=== PATIENT | female | born 1950 | race Caucasian/White ===

== ENCOUNTER → 2017-07-12 | Outpatient (CLI) | payer OTHER ==
[~2017-07-12] MED LIST: AMLODIPINE BESYL5 MG PO; DICYCLOMINE HCL20 MG PO; LEVOTHYROXINE75 MCG PO; LEVOTHYROXINE88 MCG PO; LOSARTAN POTAS100 MG PO; METOPROLOL SUCC50 MG PO; OMEPRAZOLE40 MG PO
--- NOTE | 2017-07-12 13:58 | Diagnostic Imaging Report ---
PROCEDURE:ABDOMINAL ULTRASOUND COMPARISON:None. INDICATIONS:Abdomen Pain, Colon Polyps TECHNIQUE: Garduno-scale and color sonographic images were obtained of the abdomen in transverse and sagittal planes. FINDINGS: Liver: 13.3 in length in right midclavicular line. Increased echogenicity. No masses. Mildly nodular contour. Main portal vein: 0.7 cm with expected hepatopetal flow Gallbladder: A 3 mm echogenic focus adherent to the gallbladder wall may represent a small, adherent stone or polyp. Common Bile Duct: 0.3 cm, nondilated Sonographic Schulz's sign: Negative Right kidney: 10.0 cm in length. No stones, hydronephrosis, or solid mass. Left kidney: 10.3 cm in length. No stones, hydronephrosis, or solid mass. Spleen: 9.1 cm in length. Pancreas: The pancreatic duct is prominent, measuring up to about 4 mm. Inferior vena cava: Patent Aorta: The distal aorta is obscured overlying bowel gas. Ascites: None CONCLUSION: Prominent pancreatic duct. Recommend CT of the abdomen, pancreatic protocol (with and without contrast), and to exclude an obstructing mass. Mildly nodular liver contour, raising the possibility of cirrhosis. This could be further evaluated on CT of the abdomen. 3 mm echogenic focus adherent to the gallbladder wall. This could represent a small stone or polyp. Dictated by: Sergio Conner M.D. on 07/12/2017 at 13:57 Electronically approved by: Sergio Conner M.D. on 07/12/2017 at 13:57
== END ==
LOC: US 12:34
PROVIDERS: ATTEND Internal Medicine Gastroenterology
DX: R10.30 Lower abdominal pain, unspecified (principal); R14.0 Abdominal distension (gaseous); K30 Functional dyspepsia; I10 Essential (primary) hypertension; Z68.22 Body mass index [BMI] 22.0-22.9, adult; Z83.71 Family history of colonic polyps; F10.20 Alcohol dependence, uncomplicated; F17.200 Nicotine dependence, unspecified, uncomplicated
CPT/HCPCS: 76700

== ENCOUNTER → 2017-07-19 | Day surgery (SDC) | payer OTHER ==
[2017-07-15 15:47] LABS: BASOPHILS # (AUTO) 0.1 (0.0-0.1); BASOPHILS % 1.2 % (0.0-1.0); EOSINOPHILS # (AUTO) 0.1 (0.0-0.4); EOSINOPHILS % 1.7 % (0.0-6.0); HEMATOCRIT 42.9 % (34.2-44.1); HEMOGLOBIN 15.1 g/dL (12.0-16.0); LYMPHOCYTES # (AUTO) 1.9 (1.0-3.2); LYMPHOCYTES % 32.1 % (18.0-39.1); MEAN CORPUSCULAR HEMOGLOBIN 31.9 pg (28-32); MEAN CORPUSCULAR HGB CONC 35.2 g/dL (31-35); MEAN CORPUSCULAR VOLUME 90.5 fL (81-99); MONOCYTES # (AUTO) 0.7 (0.2-0.8); MONOCYTES % 11.4 % (4.4-11.3); NEUTROPHILS # (AUTO) 3.2 (2.1-6.9); NEUTROPHILS % 53.4 % (38.7-80.0); PLATELET COUNT 301 x10e3/uL (140-360); RED BLOOD COUNT 4.74 x10e6/uL (3.6-5.1); RED CELL DISTRIBUTION WIDTH 12.2 % (11.7-14.4)
[~2017-07-19] MED LIST changes: +FENTANYL CITRATE/PF 100MCG/2 ML INJ ONE; +LIDOCAINE HCL 2% LOCAL INJ 5 ML SDV VIAL INJ ONE; +MIDAZOLAM HCL 2 MG/2 ML VIAL ONE; +PROPOFOL IV EMULSION 10 MG/ML 20 ML VIAL ONE
--- OUTSIDE RECORDS SUMMARY | 2017-07-19 11:49 | XMS REPORT ---
Author Author [facility] Address Unknown Phone Unavailable Care Team Providers [employer] Courier Name Role Phone TY DANIELS Unavailable Unavailable MELBA SCHMIDT Unavailable Unavailable Problems This patient has no known problems. Allergies, Adverse Reactions, Alerts This patient has no known allergies or adverse reactions. Medications This patient has no known medications. Results Test Description Test Time Test Comments Text Results Atomic Results Result Comments US ABDOMEN COMPLETE [place] [address] Patient Name: JAMES MARK MR #: [id number] : 1950 Age/Sex: 67/F Req #: [id number] Adm Physician: Ordered by: TY DANIELS MD Report #: [id number] Location: US Room/Bed: Procedure: [id number] US/US ABDOMEN COMPLETE Exam Date: 07/12/17 Exam Time : 1307 REPORT STATUS: Signed PROCEDURE: ABDOMINAL ULTRASOUND COMPARISON: None. INDICATIONS: Abdomen Pain, Colon Polyps TECHNIQUE : Garduno-scale and color sonographic images were obtained of the abdomen in transverse and sagittal planes. FINDINGS: Liver: 13.3 in length in right midclavicular line. Increased echogenicity. No masses. Mildly nodular contour. Main portal vein: 0.7 cm with expected hepatopetal flow Gallbladder: A 3 mm echogenic focus adherent to the gallbladder wall may represent a small, adherent stone or polyp. Common Bile Duct: 0.3 cm, nondilated Sonographic Schulz's sign: Negative Right kidney: 10.0 cm in length. No stones, hydronephrosis, or solid mass. Left kidney: 10.3 cm in length. No stones, hydronephrosis, or solid mass. Spleen: 9.1 cm in length. Pancreas: The pancreatic duct is prominent, measuring up to about 4 mm. Inferior vena cava: Patent Aorta: The distal aorta is obscured overlying bowel gas. Ascites: None CONCLUSION: Prominent pancreatic duct. Recommend CT of the abdomen, pancreatic protocol (with and without contrast), and to exclude an obstructing mass. Mildly nodular liver contour, raising the possibility of cirrhosis. This could be further evaluated on CT of the abdomen. 3 mm echogenic focus adherent to the gallbladder wall. This could represent a small stone or polyp. Dictated by: Christel Conner M.D. on 07/12/2017 at 13:57 Electronically approved by: Christel Conner M.D. on 07/12/2017 at 13:57 Dictated By: CHRISTEL CONNER MD [id number] Transcribed By: SUMIT on 07/12/17 1357 COPY TO: TY DANIELS MD BANathalia DUARTE [place] [address] Patient Name: JAMES MARK MR #: [id number] : 1950 Age/Sex: 66/F Req #: [id number] Adm Physician: Ordered by: ROXANA DELGADILLO, MELBA DELGADILLO Report #: [id number] Location: DX Room/Bed: Procedure: [id number] DX/MODIFIED BA. SWALLOW Exam Date: Exam Time: REPORT STATUS: Signed PROCEDURE: X-RAY MODIFIED BARIUM SWALLOW COMPARISON: None. INDICATIONS: Not provided. DISCUSSION: Fluoroscopic examination was performed in conjunction with speech pathology, during swallowing of a variety of thin and thick liquid consistencies. CONCLUSION: No penetration or aspiration. Please see the report from speech pathology for complete details. Dictated by: Svetlana Andersen M.D. on 03/31/2017 at 14:12 Electronically approved by: Svetlana Andersen M.D. on 03/31/2017 at 14:12 Dictated By: SVETLANA ANDERSEN MD 141 Transcribed By: SUMIT on 03/31/171411 COPY TO: MELBA SCHMIDT
== END | disposition home or self-care (01) ==
LOC: OR 11:48
PROVIDERS: ATTEND Internal Medicine Gastroenterology
DX: K29.50 Unspecified chronic gastritis without bleeding (principal); K63.5 Polyp of colon; K22.70 Barrett's esophagus without dysplasia; K21.0 Gastro-esophageal reflux disease with esophagitis; K44.9 Diaphragmatic hernia without obstruction or gangrene; K57.30 Diverticulosis of large intestine without perforation or abscess without bleeding; K58.9 Irritable bowel syndrome, unspecified; I10 Essential (primary) hypertension; E03.9 Hypothyroidism, unspecified; F17.200 Nicotine dependence, unspecified, uncomplicated; Z01.810 Encounter for preprocedural cardiovascular examination; Z01.812 Encounter for preprocedural laboratory examination; Z86.11 Personal history of tuberculosis; Z86.19 Personal history of other infectious and parasitic diseases
CPT/HCPCS: 36415; 43239; 45385; 85025; 93005; J2001; J2250

== ENCOUNTER → 2017-08-06 | Outpatient (CLI) | payer OTHER ==
[~2017-08-06] MED LIST changes: -FENTANYL CITRATE/PF 100MCG/2 ML INJ ONE; +IOPAMIDOL 370 MG/ML 200 ML INFUS..BTL INJ ONE; -LIDOCAINE HCL 2% LOCAL INJ 5 ML SDV VIAL INJ ONE; -MIDAZOLAM HCL 2 MG/2 ML VIAL ONE; -PROPOFOL IV EMULSION 10 MG/ML 20 ML VIAL ONE; +SODIUM CHLORIDE 0.9% 50ML 50 ML ONE
[2017-08-06 12:17] LABS: BLOOD UREA NITROGEN 9 mg/dL (8-26)
[2017-08-06 12:18] LABS: BUN/CREATININE RATIO 11 (6-25); CREATININE, SERUM 0.8 mg/dL (0.6-1.1); EST GLOMERULAR FILTRATION RATE > 60 ML/MIN (60-)
--- NOTE | 2017-08-06 14:45 | Diagnostic Imaging Report ---
EXAM: CT Abdomen WITHOUT and WITH contrast INDICATION: Abdominal pain and distention. \[id number] \S\[id number] COMPARISON: Abdominal ultrasound dated 07/12/2017 TECHNIQUE: Abdomen was scanned utilizing a multidetector helical scanner from the lung base to the iliac crest before and after administration of IV contrast. Coronal and sagittal reformations were obtained. Pancreas mass protocol was performed. Scan was performed pre- through the liver, arterial phase through the liver and venous phase through the abdomen. IV CONTRAST: 100 mL of Isovue-370 ORAL CONTRAST: Water COMPLICATIONS: None RADIATION DOSE: Total DLP: 555.51 mGy*cm Estimated effective dose: (DLP x 0.015 x size factor) mSv CTDIvol has been reviewed. It is below the limits set by the Radiation Protocol Committee (RPC). FINDINGS: LINES and TUBES: None. LOWER THORAX: Bibasilar linear atelectasis/scarring, right more on left. There is mild right base pleural thickening. HEPATOBILIARY: No focal hepatic lesions. No biliary ductal dilation. GALLBLADDER: No radio-opaque stones or sludge. No wall thickening. SPLEEN: No splenomegaly. PANCREAS: No focal masses or ductal dilatation. And chronic duct measures 3 mm, within normal limits. Punctate calcification abutting anterior pancreatic body is probably related to prior episode of pancreatitis (series 2, image 22). ADRENALS: No adrenal nodules KIDNEYS/URETERS: Kidneys enhance symmetrically. No hydronephrosis. No renal mass. 1.2 cm left superior pole cyst. There are additional subcentimeter left inferior pole hypodensities which are too small to characterize. No stones. GI TRACT: Visualized bowel loops are unremarkable. No evidence of bowel obstruction. LYMPH NODES: No lymphadenopathy. VESSELS: There is mild atherosclerotic disease in the aorta and major arterial branches. PERITONEUM / RETROPERITONEUM: No free air or fluid. BONES: Degenerative changes of lower lumbar spine with grade 1 retrolisthesis of L4 in relation to L3. SOFT TISSUES: Unremarkable. IMPRESSION: 1. No pancreatic ductal dilatation or evidence of pancreatic mass. 2. No signs of cirrhosis. Signed by: Dr. Raymond Jama MD on 08/06/2017 2:41 PM
== END ==
LOC: CT 11:24
PROVIDERS: ATTEND Internal Medicine Gastroenterology
DX: R10.13 Epigastric pain (principal); R14.0 Abdominal distension (gaseous); R76.8 Other specified abnormal immunological findings in serum; F10.20 Alcohol dependence, uncomplicated; Z68.21 Body mass index [BMI] 21.0-21.9, adult; F17.200 Nicotine dependence, unspecified, uncomplicated
CPT/HCPCS: 36415; 74170; 82565; 84520; Q9967